=== PATIENT | male | born 1985 | race Caucasian/White ===

== ENCOUNTER 2017-05-14 09:10 | Emergency (ER) | payer BC ==
[2017-05-14 09:21] VITALS: BP 140/82; PULSE 70; TEMP 98.4; BMI 25.1
--- NOTE | 2017-05-14 10:35 | PDOC ---
History of Present Illness - General Chief Complaint: Chest Pain Stated Complaint: CHEST PAIN Time Seen by Provider: 05/14/17 10:09 History Source: Patient Exam Limitations: No Limitations - History of Present Illness Initial Comments: 05/14/17 10:35 Chin is here with complaints of left upper chest wall pain. was performing some heavy lifting although does not remember any specific incident where he injured himself but works as a auto mechanic. performs heavy lifting daily. States onset was approximately 5 days ago went away spontaneously but returned and hurts more with movement, hurts more lifting his arm, and hurts with him pushing on his upper chest wall. Denies shortness of breath, chest pain or palpitations, no fever or cough. Has no history of cardiac disease no one in his family suffers from cardiac disease Occurred: reports: last week Severity: reports: mild, moderate Pain Location: reports: chest Modifying Factors: improves with: None Loss of Consciousness: no loss of consciousness Associated Symptoms (Fall): denies symptoms Past History - Travel Traveled outside of the country in the last 30 days: Yes Close contact w/someone who was outside of country & ill: Yes - Past Medical History Allergies/Adverse Reactions: Allergies Allergy/AdvReac Type Severity Reaction Status Date / Time No Known Allergies Allergy Verified 05/14/17 09:17 Home Medications: Ambulatory Orders Cyclobenzaprine HCl [Flexeril 10 mg] 10 mg PO BID PRN #14 tablet 05/14/17 Ibuprofen [Motrin -] 400 mg PO QID PRN #28 tablet 05/14/17 COPD: No Other medical history: denies. - Suicide/Smoking/Psychosocial Hx Smoking Status: No Smoking History: Never smoked Number of Cigarettes Smoked Daily: 0 Trauma Specific PMHX - Complaint Specific PMHX Back Injury: No Neck Injury: No Review of Systems - Review of Systems Able to Perform ROS?: Yes Is the patient limited [place]i proficient: Yes Constitutional: Yes: Symptoms Reported, See HPI. No: Fever, Malaise HEENTM: No: Symptoms Reported Integumentary: Yes: Symptoms Reported *Physical Exam - Vital Signs Last Vital Signs Temp Pulse Resp BP Pulse Ox 98.4 F 70 19 140/82 98 05/14/17 09:18 05/14/17 09:18 05/14/17 09:18 05/14/17 09:18 05/14/17 09:18 - Physical Exam General Appearance: Yes: Nourished, Appropriately Dressed HEENT: positive: [place], Normal ENT Inspection, TMs Normal, Pharynx Normal Neck: positive: Supple. negative: Tender Respiratory/Chest: positive: Lungs Clear, Normal Breath Sounds (ago has pain reproduced with deep inspiration). negative: Wheezing Cardiovascular: positive: Regular Rhythm Gastrointestinal/Abdominal: positive: Normal Bowel Sounds, Soft Musculoskeletal: positive: Normal Inspection, Muscle Spasm (no true spasm but tenderness reproduced with deep didn't palpation of the upper lateral aspect of left pectoralis muscles. Pain is reproduced with abduction against resistance and forward flexion. Also has some tenderness to his neck musculature, no true bone tenderness, clavicle scapular intact, no vertebral spine tenderness. 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, Fully Oriented, Alert, Normal Mood/ Affect, Normal Response, Motor Strength 5/5 Heart Score/ECG Review - ECG Intrepretation Rhythm: Regular Rhythm (Sinus bradycardia) - ECG Impressions Normal ECG: Yes Non-specific ST Elevation: No Ischemic Changes: No Progress Note - Progress Note Progress Note: Musculoskeletal chest pain, will treat with NSAIDs and cyclobenzaprine *DC/Admit/Observation/Transfer Diagnosis at time of Disposition: Left-sided chest wall pain - Discharge Dispostion Disposition: HOME Condition at time of disposition: Stable Admit: No - Referrals - Patient Instructions Printed Discharge Instructions: DI for Muscle Strain Additional Instructions: Rest, no heavy lifting or exercise until pain is resolved Hot soaks to neck and low back as often as possible/hot showers or Jacuzzis No massage or therapy until spasm is gone Continue ibuprofen 2-200 mg tablets every 6 hours for the next 3 days then as needed for pain and swelling Cyclobenzaprine 1-10mg every 8 hours as needed for spasm If not significant improvement within 24 hours with medication and rest regime, followup with private physician for change in medications and /or therapy. - Post Discharge Activity Forms/Work/School Notes: Back to Work, Back to School
[2017-05-14] MEDS ORDERED: KETOROLAC TROMETHAMINE 60 MG/2 ML VIAL IM ONE (10:36)
[2017-05-14] MEDS ORDERED: KETOROLAC TROMETHAMINE 60 MG/2 ML VIAL ONE (10:46)
--- NOTE | 2017-05-14 12:44 | EKG ---
Test Reason : Blood Pressure : / mmHG Vent. Rate : 057 BPM Atrial Rate : 057 BPM P-R Int : 140 ms QRS Dur : 090 ms QT Int : 388 ms P-R-T Axes : 005 059 044 degrees QTc Int : 377 ms SINUS BRADYCARDIA OTHERWISE NORMAL ECG NO PREVIOUS ECGS AVAILABLE Confirmed by MIRA LOWE MD ([id number]) on 05/14/2017 12:43:44 PM Referred By: Confirmed By:MIRA LOWE MD
== END 2017-05-14 10:53 | disposition home or self-care (01) ==
LOC: JERFT 09:10
PROC: 3E0233Z Introduction of Anti-inflammatory into Muscle, Percutaneous Approach (ICD-10-PCS; principal; 2017-05-14)
DX: S29.011A Strain of muscle and tendon of front wall of thorax, initial encounter (principal); X50.0XXA Overexertion from strenuous movement or load, initial encounter; Y93.89 Activity, other specified; Y92.89 Other specified places as the place of occurrence of the external cause; Y99.8 Other external cause status
CPT/HCPCS: 93005; 93010; 99281-25

== ENCOUNTER 2022-12-31 18:21 | Inpatient (IN) | payer BC ==
[2022-12-31] MEDS ORDERED: PIPERACILLIN/TAZOB 4.5 GM 4.5 GM in DEXTROSE 5%-WATER 100 ML IVPB ONE (19:01)
[2022-12-31] MEDS ORDERED: VANCOMYCIN 1,000 MG in DEXTROSE 5%-WATER - 250 ML IVPB ONE (19:01)
[2022-12-31] MEDS ORDERED: ACETAMINOPHEN 1000 MG/100 ML BAG IVPB ONE (19:02)
[2022-12-31] MEDS ORDERED: SODIUM CHLORIDE 0.9% 500 ML INFUS.BAG IV ONE (19:02)
[2022-12-31] MEDS ORDERED: PIPERACILLIN/TAZOB 4.5 GM 4.5 GM/100 ML BAG IVPB ONE (19:04)
[2022-12-31] MEDS ORDERED: ACETAMINOPHEN INJECTION 100 ML IVPB ONE (19:04)
[2022-12-31] MEDS ORDERED: VANCOMYCIN 1 GRAM (PRE-DOCKED) 1,000 MG/250 ML BAG IVPB ONE (19:04)
[2022-12-31 20:02] LABS: INR 1.08 (0.83-1.09); PROTHROMBIN TIME (PATIENT) 12.5 SEC (9.7-13.0)
[2022-12-31 20:04] LABS: ACTIVATED PTT 32.1 SECONDS (25.2-36.5)
[2022-12-31 20:15] LABS: POTASSIUM 3.7 mmol/L (3.5-5.1)
[2022-12-31 20:16] LABS: CALCIUM 9.3 mg/dL (8.5-10.1)
[2022-12-31 20:17] LABS: ALBUMIN 4.2 g/dl (3.4-5.0); BLOOD UREA NITROGEN 12.1 mg/dL (7-18)
[2022-12-31 20:20] LABS: CREATININE 1.1 mg/dL (0.55-1.3)
[2022-12-31 20:22] LABS: BILIRUBIN,TOTAL 0.9 mg/dL (0.2-1); TOT PROT 6.9 g/dl (6.4-8.2)
[2022-12-31 21:01] LABS: HEMATOCRIT 39.2 % (35.4-49); HEMOGLOBIN 12.9 GM/dL (11.7-16.9); MCH 29.2 pg (25.7-33.7); MCHC 32.9 g/dl (32.0-35.9); MEAN CELL VOLUME 88.6 fl (80-96); PLATELET COUNT 238 10^3/uL (134-434); RBC 4.42 M/mm3 (4.00-5.60); WHITE BLOOD COUNT 26.8 K/mm3 (4.0-10.0)
[2022-12-31] MEDS ORDERED: morphine CARPU-JECT 2 MG/1 ML DISP.SYRIN IVPUSH ONE ×2 (21:25→22:18)
[2022-12-31 22:29] LABS: ANISOCYTOSIS 0; MACROCYTOSIS 0
[2022-12-31] MEDS ORDERED: ENOXAPARIN NA (PORCINE) 40 MG/0.4 ML DISP.SYRIN SQ SCH (23:30)
[2022-12-31] MEDS ORDERED: PIPERACILLIN/TAZOB 4.5 GM 4.5 GM in DEXTROSE 5%-WATER 100 ML IVPB SCH (23:45)
[2022-12-31] MEDS ORDERED: LIDOCAINE 5% TOPICAL PATCH ONE (23:58)
[2022-12-31] MEDS ORDERED: KETOROLAC TROMETHAMINE 15 MG/ML VIAL IVPUSH ONE (23:59)
[2023-01-01] MEDS: VANCOMYCIN 1,000 MG in DEXTROSE 5%-WATER - 250 ML IVPB SCH ×2 (00:03→11:50)
[2023-01-01] MEDS ORDERED: KETOROLAC TROMETHAMINE 15 MG/ML VIAL ONE (00:05)
[2023-01-01] MEDS: PIPERACILLIN/TAZOB 4.5 GM 4.5 GM in DEXTROSE 5%-WATER 100 ML IVPB SCH ×6 (02:16→21:29)
[2023-01-01 03:26] VITALS: BMI 25.2
[2023-01-01] MEDS ORDERED: KETOROLAC TROMETHAMINE 30 MG/1 ML VIAL IM ONE (06:45)
[2023-01-01] MEDS ORDERED: KETOROLAC TROMETHAMINE 15 MG/ML VIAL IM ONE (06:45)
[2023-01-01] MEDS ORDERED: VANCOMYCIN 1 GRAM (PRE-DOCKED) 1,000 MG/250 ML BAG IVPB SCH (07:00)
[2023-01-01] MEDS: ACETAMINOPHEN 1000 MG/100 ML BAG IVPB PRN ×3 (07:23→23:59)
[2023-01-01] MEDS: VANCOMYCIN/WATER FOR INJ (PEG) 1,000 MG/200 ML BAG IVPB SCH ×2 (07:47→18:27)
[2023-01-01 09:30] LABS: HEMATOCRIT 38.7 % (35.4-49); HEMOGLOBIN 12.8 GM/dL (11.7-16.9); MCH 29.1 pg (25.7-33.7); MEAN CELL VOLUME 88.1 fl (80-96); MEAN PLT VOLUME 9.3 fl (7.5-11.1); PLATELET COUNT 207 10^3/uL (134-434); RDW 13.1 % (11.9-15.9); WHITE BLOOD COUNT 26.9 K/mm3 (4.0-10.0)
[2023-01-01 09:30] LABS: PH,URINE 5.5 (5.0-8.0); URINE APPEARANCE CLEAR; URINE BILIRUBIN NEGATIVE (NEGATIVE); URINE COLOR YELLOW; URINE GLUCOSE (UA) NEGATIVE (NEGATIVE); URINE KETONE NEGATIVE (NEGATIVE); URINE LEUK ESTERASE NEGATIVE (NEGATIVE); URINE NITRITE NEGATIVE (NEGATIVE); URINE PROTEIN NEGATIVE (NEGATIVE)
[2023-01-01 09:47] LABS: POTASSIUM 3.3 mmol/L (3.5-5.1)
[2023-01-01 09:49] LABS: BLOOD UREA NITROGEN 11.1 mg/dL (7-18); CALCIUM 8.2 mg/dL (8.5-10.1)
[2023-01-01 09:52] LABS: ALBUMIN 3.4 g/dl (3.4-5.0)
[2023-01-01 09:53] LABS: CREATININE 0.9 mg/dL (0.55-1.3)
[2023-01-01 09:54] LABS: BILIRUBIN,TOTAL 1.1 mg/dL (0.2-1); TOT PROT 6.1 g/dl (6.4-8.2)
[2023-01-01] MEDS ORDERED: LIDOCAINE PATCH REMOVAL MC ONE (10:00)
[2023-01-01] MEDS ORDERED: ENOXAPARIN NA (PORCINE) 40 MG/0.4 ML DISP.SYRIN SQ SCH (10:00)
[2023-01-01] MEDS: NICOTINE 7 MG/24 HOURS TOPICAL PATCH TD SCH (10:06)
[2023-01-01] MEDS ORDERED: ACETAMINOPHEN 325 MG TABLET (FP) PO PRN (12:47)
[2023-01-01] MEDS: LIDOCAINE PATCH REMOVAL MC SCH (23:33)
[2023-01-01] MEDS: LIDOCAINE 5% TOPICAL PATCH TP SCH (23:51)
[2023-01-02] MEDS: PIPERACILLIN/TAZOB 4.5 GM 4.5 GM in DEXTROSE 5%-WATER 100 ML IVPB SCH ×4 (02:34→21:12)
[2023-01-02] MEDS: VANCOMYCIN/WATER FOR INJ (PEG) 1,000 MG/200 ML BAG IVPB SCH ×2 (06:44→20:22)
[2023-01-02] MEDS: NICOTINE 7 MG/24 HOURS TOPICAL PATCH TD SCH (09:32)
[2023-01-02] MEDS: LIDOCAINE 5% TOPICAL PATCH TP SCH (09:32)
[2023-01-02] MEDS: IBUPROFEN 600 MG TABLET (FP) PO PRN ×3 (09:33→21:17)
[2023-01-02] MEDS ORDERED: ACETAMINOPHEN 325 MG TABLET (FP) PO PRN (09:52)
[2023-01-02 11:09] LABS: HEMATOCRIT 39.3 % (35.4-49); HEMOGLOBIN 13.1 GM/dL (11.7-16.9); MCH 29.4 pg (25.7-33.7); MCHC 33.3 g/dl (32.0-35.9); MEAN CELL VOLUME 88.2 fl (80-96); MEAN PLT VOLUME 9.1 fl (7.5-11.1); PLATELET COUNT 228 10^3/uL (134-434); RBC 4.46 M/mm3 (4.00-5.60); RDW 13.2 % (11.9-15.9); WHITE BLOOD COUNT 24.7 K/mm3 (4.0-10.0)
[2023-01-02 11:49] LABS: ANISOCYTOSIS 0; MACROCYTOSIS 0
[2023-01-02 12:12] LABS: POTASSIUM 3.4 mmol/L (3.5-5.1)
[2023-01-02 12:16] LABS: CALCIUM 8.7 mg/dL (8.5-10.1)
[2023-01-02 12:17] LABS: BLOOD UREA NITROGEN 6.9 mg/dL (7-18)
[2023-01-02] MEDS ORDERED: POTASSIUM CHLORIDE TABS 20 MEQ TABLET.ER (FP) PO ONE (14:15)
[2023-01-02] MEDS ORDERED: LACTATED RINGERS SOLUTION 1,000 ML/1,000 ML INFUS.BAG IV SCH (15:45)
[2023-01-02] MEDS: LACTATED RINGERS SOLUTION 1,000 ML/1,000 ML INFUS.BAG IV SCH (21:14)
[2023-01-02] MEDS: LIDOCAINE PATCH REMOVAL MC SCH (21:15)
[2023-01-03] MEDS: PIPERACILLIN/TAZOB 4.5 GM 4.5 GM in DEXTROSE 5%-WATER 100 ML IVPB SCH ×4 (02:50→21:44)
[2023-01-03] MEDS: IBUPROFEN 600 MG TABLET (FP) PO PRN (03:01)
[2023-01-03] MEDS: VANCOMYCIN/WATER FOR INJ (PEG) 1,000 MG/200 ML BAG IVPB SCH ×2 (06:14→18:02)
[2023-01-03] MEDS: ACETAMINOPHEN 325 MG TABLET (FP) PO PRN ×3 (06:21→17:44)
[2023-01-03] MEDS: LIDOCAINE 5% TOPICAL PATCH TP SCH (09:02)
[2023-01-03 10:23] LABS: BASO % 0.1 % (0-2.0); EOS % 0.6 % (0-4.5); HEMATOCRIT 37.8 % (35.4-49); HEMOGLOBIN 12.6 GM/dL (11.7-16.9); LYMPH % 6.2 % (8-40); MCH 29.3 pg (25.7-33.7); MCHC 33.3 g/dl (32.0-35.9); MEAN CELL VOLUME 88.2 fl (80-96); MEAN PLT VOLUME 9.4 fl (7.5-11.1); MONO % 7.3 % (3.8-10.2); NEUT % 85.8 % (42.8-82.8); PLATELET COUNT 250 10^3/uL (134-434); RBC 4.29 M/mm3 (4.00-5.60); RDW 13.3 % (11.9-15.9); WHITE BLOOD COUNT 17.4 K/mm3 (4.0-10.0)
[2023-01-03 10:32] LABS: POTASSIUM 3.7 mmol/L (3.5-5.1)
[2023-01-03 10:36] LABS: BLOOD UREA NITROGEN 7.2 mg/dL (7-18); CALCIUM 8.7 mg/dL (8.5-10.1)
[2023-01-03 10:39] LABS: CREATININE 0.8 mg/dL (0.55-1.3); PHOSPHOROUS 1.7 mg/dL (2.5-4.9)
[2023-01-03] MEDS ORDERED: NAPH,MB-DB/K PH,MBDB POWDER PACKET PO ONE (14:55)
[2023-01-03] MEDS: LACTATED RINGERS SOLUTION 1,000 ML/1,000 ML INFUS.BAG IV SCH ×2 (15:10→20:26)
[2023-01-03] MEDS: LIDOCAINE PATCH REMOVAL MC SCH (21:44)
[2023-01-04] MEDS: PIPERACILLIN/TAZOB 4.5 GM 4.5 GM in DEXTROSE 5%-WATER 100 ML IVPB SCH ×4 (02:19→20:35)
[2023-01-04] MEDS: ACETAMINOPHEN 325 MG TABLET (FP) PO PRN ×2 (06:01→20:35)
[2023-01-04] MEDS: VANCOMYCIN/WATER FOR INJ (PEG) 1,000 MG/200 ML BAG IVPB SCH ×2 (06:01→18:07)
[2023-01-04 08:23] LABS: BASO % 0.4 % (0-2.0); HEMATOCRIT 36.8 % (35.4-49); HEMOGLOBIN 12.4 GM/dL (11.7-16.9); LYMPH % 13.4 % (8-40); MCH 29.8 pg (25.7-33.7); MCHC 33.7 g/dl (32.0-35.9); MEAN CELL VOLUME 88.4 fl (80-96); MONO % 11.5 % (3.8-10.2); NEUT % 73.7 % (42.8-82.8); PLATELET COUNT 275 10^3/uL (134-434); RBC 4.17 M/mm3 (4.00-5.60); RDW 13.4 % (11.9-15.9)
[2023-01-04 08:42] LABS: POTASSIUM 3.5 mmol/L (3.5-5.1)
[2023-01-04 08:44] LABS: CALCIUM 8.5 mg/dL (8.5-10.1)
[2023-01-04 08:45] LABS: BLOOD UREA NITROGEN 6.8 mg/dL (7-18)
[2023-01-04 08:48] LABS: CREATININE 0.9 mg/dL (0.55-1.3); MAGNESIUM 2.1 mg/dL (1.8-2.4); PHOSPHOROUS 3.2 mg/dL (2.5-4.9)
[2023-01-04] MEDS: LIDOCAINE 5% TOPICAL PATCH TP SCH (09:00)
[2023-01-04] MEDS: LIDOCAINE PATCH REMOVAL MC SCH (21:02)
[2023-01-05] MEDS: PIPERACILLIN/TAZOB 4.5 GM 4.5 GM in DEXTROSE 5%-WATER 100 ML IVPB SCH ×4 (02:18→21:15)
[2023-01-05] MEDS: ACETAMINOPHEN 325 MG TABLET (FP) PO PRN (03:37)
[2023-01-05] MEDS: VANCOMYCIN/WATER FOR INJ (PEG) 1,000 MG/200 ML BAG IVPB SCH ×2 (06:02→18:23)
[2023-01-05] MEDS ORDERED: INSULIN (LEVEMIR) 100 UNITS/ML UNITS SQ ONE (06:42)
[2023-01-05] MEDS ORDERED: INSULIN (NOVOLOG) ASPART 100 UNITS/ML 10ML VIAL ONE (06:43)
[2023-01-05 08:15] LABS: HEMATOCRIT 37.8 % (35.4-49); HEMOGLOBIN 12.3 GM/dL (11.7-16.9); MCH 29.3 pg (25.7-33.7); MCHC 32.5 g/dl (32.0-35.9); MEAN CELL VOLUME 90.1 fl (80-96); MEAN PLT VOLUME 9.4 fl (7.5-11.1); PLATELET COUNT 309 10^3/uL (134-434); WHITE BLOOD COUNT 10.2 K/mm3 (4.0-10.0)
[2023-01-05 08:36] LABS: POTASSIUM 3.7 mmol/L (3.5-5.1)
[2023-01-05 08:39] LABS: CALCIUM 8.7 mg/dL (8.5-10.1)
[2023-01-05 08:40] LABS: MAGNESIUM 2.2 mg/dL (1.8-2.4)
[2023-01-05 08:43] LABS: CREATININE 0.8 mg/dL (0.55-1.3); PHOSPHOROUS 4.5 mg/dL (2.5-4.9)
[2023-01-05] MEDS: LIDOCAINE 5% TOPICAL PATCH TP SCH (09:59)
[2023-01-05] MEDS: IBUPROFEN 600 MG TABLET (FP) PO PRN ×2 (13:33→23:56)
[2023-01-05] MEDS: LIDOCAINE PATCH REMOVAL MC SCH (21:13)
[2023-01-05] MEDS ORDERED: PIPERACILLIN/TAZOBACTAM 4.5 GM VIAL IVPB ONE (21:15)
[2023-01-06] MEDS: PIPERACILLIN/TAZOB 4.5 GM 4.5 GM in DEXTROSE 5%-WATER 100 ML IVPB SCH ×4 (02:00→21:25)
[2023-01-06] MEDS: VANCOMYCIN/WATER FOR INJ (PEG) 1,000 MG/200 ML BAG IVPB SCH ×2 (05:59→18:26)
[2023-01-06] MEDS ORDERED: PIPERACILLIN/TAZOBACTAM 4.5 GM VIAL IVPB ONE (08:49)
[2023-01-06 09:00] LABS: HEMATOCRIT 39.4 % (35.4-49); HEMOGLOBIN 12.8 GM/dL (11.7-16.9); MCH 29.3 pg (25.7-33.7); MCHC 32.5 g/dl (32.0-35.9); MEAN CELL VOLUME 90.2 fl (80-96); PLATELET COUNT 361 10^3/uL (134-434); RBC 4.37 M/mm3 (4.00-5.60); RDW 13.3 % (11.9-15.9); WHITE BLOOD COUNT 9.7 K/mm3 (4.0-10.0)
[2023-01-06] MEDS: LIDOCAINE 5% TOPICAL PATCH TP SCH (09:26)
[2023-01-06 09:30] LABS: POTASSIUM 4.1 mmol/L (3.5-5.1)
[2023-01-06] MEDS: IBUPROFEN 600 MG TABLET (FP) PO PRN ×2 (09:30→22:42)
[2023-01-06 09:36] LABS: BLOOD UREA NITROGEN 9.8 mg/dL (7-18); CALCIUM 8.8 mg/dL (8.5-10.1)
[2023-01-06 09:37] LABS: MAGNESIUM 2.3 mg/dL (1.8-2.4)
[2023-01-06 09:39] LABS: CREATININE 0.9 mg/dL (0.55-1.3); PHOSPHOROUS 3.4 mg/dL (2.5-4.9)
[2023-01-06] MEDS: LIDOCAINE PATCH REMOVAL MC SCH (21:32)
[2023-01-07] MEDS ORDERED: PIPERACILLIN/TAZOBACTAM 4.5 GM VIAL IVPB ONE (01:15)
[2023-01-07] MEDS: PIPERACILLIN/TAZOB 4.5 GM 4.5 GM in DEXTROSE 5%-WATER 100 ML IVPB SCH ×4 (02:01→22:07)
[2023-01-07] MEDS: IBUPROFEN 600 MG TABLET (FP) PO PRN ×2 (04:26→22:07)
[2023-01-07] MEDS: VANCOMYCIN/WATER FOR INJ (PEG) 1,000 MG/200 ML BAG IVPB SCH ×2 (06:11→18:29)
[2023-01-07 08:29] LABS: HEMATOCRIT 39.8 % (35.4-49); HEMOGLOBIN 12.6 GM/dL (11.7-16.9); MCH 28.8 pg (25.7-33.7); MCHC 31.7 g/dl (32.0-35.9); MEAN CELL VOLUME 90.9 fl (80-96); MEAN PLT VOLUME 8.9 fl (7.5-11.1); PLATELET COUNT 394 10^3/uL (134-434); RBC 4.38 M/mm3 (4.00-5.60); RDW 13.4 % (11.9-15.9)
[2023-01-07 08:45] LABS: POTASSIUM 4.3 mmol/L (3.5-5.1)
[2023-01-07 08:49] LABS: BLOOD UREA NITROGEN 12.2 mg/dL (7-18); CALCIUM 8.8 mg/dL (8.5-10.1); MAGNESIUM 2.3 mg/dL (1.8-2.4)
[2023-01-07 08:50] LABS: CREATININE 0.9 mg/dL (0.55-1.3); PHOSPHOROUS 3.2 mg/dL (2.5-4.9)
[2023-01-07] MEDS: LIDOCAINE 5% TOPICAL PATCH TP SCH (09:17)
[2023-01-07 11:09] VITALS: RESP 18
[2023-01-08] MEDS: LIDOCAINE PATCH REMOVAL MC SCH (02:10)
[2023-01-08] MEDS: PIPERACILLIN/TAZOB 4.5 GM 4.5 GM in DEXTROSE 5%-WATER 100 ML IVPB SCH ×2 (02:11→08:33)
[2023-01-08] MEDS: VANCOMYCIN/WATER FOR INJ (PEG) 1,000 MG/200 ML BAG IVPB SCH (06:35)
[2023-01-08] MEDS: IBUPROFEN 600 MG TABLET (FP) PO PRN (06:47)
[2023-01-08] MEDS: LIDOCAINE 5% TOPICAL PATCH TP SCH (08:59)
[2023-01-08 10:29] VITALS: BP 128/77; PULSE 79; TEMP 98.6
[2023-01-08 10:30] LABS: HEMATOCRIT 40.7 % (35.4-49); HEMOGLOBIN 13.3 GM/dL (11.7-16.9); MCHC 32.7 g/dl (32.0-35.9); MEAN CELL VOLUME 88.8 fl (80-96); MEAN PLT VOLUME 8.5 fl (7.5-11.1); PLATELET COUNT 449 10^3/uL (134-434); RBC 4.58 M/mm3 (4.00-5.60); RDW 13.7 % (11.9-15.9); WHITE BLOOD COUNT 8.8 K/mm3 (4.0-10.0)
[2023-01-08 10:52] LABS: POTASSIUM 4.4 mmol/L (3.5-5.1)
[2023-01-08 10:57] LABS: CALCIUM 8.7 mg/dL (8.5-10.1)
[2023-01-08 10:58] LABS: ALBUMIN 3.4 g/dl (3.4-5.0); BLOOD UREA NITROGEN 11.3 mg/dL (7-18); MAGNESIUM 2.3 mg/dL (1.8-2.4)
[2023-01-08 11:00] LABS: PHOSPHOROUS 3.3 mg/dL (2.5-4.9)
[2023-01-08 11:01] LABS: CREATININE 0.9 mg/dL (0.55-1.3)
[2023-01-08 11:02] LABS: BILIRUBIN,TOTAL 0.5 mg/dL (0.2-1); TOT PROT 7.1 g/dl (6.4-8.2)
[2023-01-08 11:12] LABS: ANISOCYTOSIS 0; HELMET CELLS 0; HOWELL-JOLLY BODIES 0; MACROCYTOSIS 0; OVALOCYTE 0; ROULEAU 0; SICKELED CELLS 0; TARGET CELLS 0; TEAR DROP CELLS 0; TOXIC GRANULATION 0
== END 2023-01-08 13:29 | disposition home or self-care (01) | DRG 501 ==
LOC: JER 18:21 → JERBED 21:32 → J6S 01-01 00:31
PROVIDERS: ADMIT Internal Medicine; ATTEND Internal Medicine
PROC: 0M930ZZ Drainage of Right Elbow Bursa and Ligament, Open Approach (ICD-10-PCS; principal; 2023-01-01)
DX: M70.21 Olecranon bursitis, right elbow (principal); K52.1 Toxic gastroenteritis and colitis; L03.113 Cellulitis of right upper limb; F17.200 Nicotine dependence, unspecified, uncomplicated; R73.9 Hyperglycemia, unspecified; E87.6 Hypokalemia
CPT/HCPCS: 0241U-QW; 36415; 71046-TC-FY; 73070-TC-RT-FY; 80048; 80053; 81003; 83036; 83735; 84100; 85025; 85027; 85610; 85730; 86850; 86900; 86901; 87040; 87070; 87205; 93005; 93010; 99285-25; G0480